=== PATIENT | female | born 1965 | race Caucasian/White ===

== ENCOUNTER 2017-06-14 13:37 | Day surgery (SDC) | payer OTHER ==
[2017-06-14] MEDS ORDERED: MIDAZOLAM 1 MG/ML 2 ML INJ (15:34)
[2017-06-14] MEDS ORDERED: PROPOFOL 20 ML (15:34)
[2017-06-14] MEDS ORDERED: METOCLOPRAMIDE 10 MG INJ (15:35)
[2017-06-14] MEDS ORDERED: CEFAZOLIN 1 GM INJ (15:37)
[2017-06-14] MEDS ORDERED: FENTAnyl 50 MCG/ML VIAL (15:41)
[2017-06-14] MEDS ORDERED: HYDROmorphONE (0.2 MG/ML) 10ML SYG IV ×2 (16:00)
[2017-06-14] MEDS ORDERED: LABETALOL HCL 20MG INJ IV (16:00)
[2017-06-14] MEDS ORDERED: morphine (1 MG/ML) 10ML SYRINGE IV ×2 (16:00)
[2017-06-14] MEDS ORDERED: hydrALAzine 20 MG INJ IV (16:00)
[2017-06-14] MEDS: BUPIVACAINE 0.5% (SDV) 30 ML INJ (16:05)
[2017-06-14] MEDS: LIDOCAINE 2% (MDV) 20 ML INJ (16:05)
[2017-06-14] MEDS: HYDROmorphONE (0.2 MG/ML) 10ML SYG IV (16:57)
[2017-06-14] MEDS: ONDANSETRON 4 MG INJ IV (16:58)
== END 2017-06-14 18:30 | disposition home or self-care (01) ==
LOC: SDS 13:37
DX: M89.9 Disorder of bone, unspecified (principal); M79.671 Pain in right foot; E66.9 Obesity, unspecified; Z68.30 Body mass index [BMI] 30.0-30.9, adult
CPT/HCPCS: 20240; 84703; 87070; 88304; 88311

== ENCOUNTER 2018-03-09 15:46 | Day surgery (SDC) | payer OTHER ==
[~2018-03-09 15:46] MED LIST: CEFAZOLIN 2 GM/50 ML (PMX) 50 ML IVPB; LACTATED RINGER'S 1,000 ML IV*
[2018-03-09] MEDS ORDERED: CEFAZOLIN 2 GM/50 ML (PMX) 50 ML IVPB (16:00)
[2018-03-09] MEDS ORDERED: LACTATED RINGER'S 1,000 ML IV* (16:00)
[2018-03-09] MEDS ORDERED: FENTAnyl 50 MCG/ML VIAL (18:38)
[2018-03-09] MEDS ORDERED: MIDAZOLAM 1 MG/ML 2 ML INJ (18:38)
[2018-03-09] MEDS ORDERED: PROPOFOL 20 ML (18:40)
[2018-03-09] MEDS ORDERED: LIDOCAINE 2% (SDV) 5 ML INJ (18:40)
[2018-03-09] MEDS ORDERED: FENTAnyl 50 MCG/ML VIAL IV ×2 (19:00)
[2018-03-09] MEDS ORDERED: DIPHENHYDRAMINE 50 MG INJ IV (19:00)
[2018-03-09] MEDS: BUPIVACAINE 0.5% (SDV) 30 ML INJ (19:41)
[2018-03-09] MEDS: HYDROmorphONE 1 MG/5 ML IV SYRINGE IV ×3 (19:48→20:01)
[2018-03-09] MEDS: ONDANSETRON 4 MG INJ IV (19:49)
[2018-03-09] MEDS: MEPERIDINE 25 MG INJ IV (20:04)
[2018-03-09] MEDS ORDERED: hydrALAzine 20 MG INJ (20:13)
[2018-03-09] MEDS: hydrALAzine 20 MG INJ IV (20:19)
[2018-03-09] MEDS: KETOROLAC 30 MG INJ IV (20:24)
== END 2018-03-09 21:01 | disposition home or self-care (01) ==
LOC: SDS 15:46
DX: G56.01 Carpal tunnel syndrome, right upper limb (principal)
CPT/HCPCS: 64721

== ENCOUNTER 2018-03-17 12:06 | Day surgery (SDC) | payer OTHER ==
[~2018-03-17 12:06] MED LIST changes: -LACTATED RINGER'S 1,000 ML IV*
[2018-03-17] MEDS ORDERED: BUPIVACAINE 0.5% (SDV) 30 ML INJ (14:15)
[2018-03-17] MEDS ORDERED: CEFAZOLIN 1 GM INJ (14:28)
[2018-03-17] MEDS ORDERED: MIDAZOLAM 1 MG/ML 2 ML INJ (14:28)
[2018-03-17] MEDS ORDERED: PROPOFOL 20 ML (14:28)
[2018-03-17] MEDS ORDERED: FENTAnyl 50 MCG/ML VIAL (14:28)
[2018-03-17] MEDS ORDERED: LIDOCAINE 1% (MDV) 20 ML INJ (14:31)
[2018-03-17] MEDS: LIDOCAINE 1% (MDV) 20 ML INJ INJ (14:39)
[2018-03-17] MEDS ORDERED: DEXAMETHASONE 4 MG/ML 1 ML INJ (14:46)
[2018-03-17] MEDS ORDERED: KETOROLAC 30 MG INJ (14:46)
[2018-03-17] MEDS ORDERED: METOCLOPRAMIDE 10 MG INJ (14:46)
[2018-03-17] MEDS ORDERED: ONDANSETRON 4 MG INJ (14:46)
[2018-03-17] MEDS ORDERED: OXYCODONE/ACETAMINOPHEN (5/325) TAB PO (15:00)
[2018-03-17] MEDS ORDERED: morphine (1 MG/ML) 10ML SYRINGE IV ×2 (15:00)
[2018-03-17] MEDS ORDERED: METOCLOPRAMIDE 10 MG INJ IV (15:00)
[2018-03-17] MEDS ORDERED: FENTAnyl 50 MCG/ML VIAL IV ×2 (15:00)
[2018-03-17] MEDS ORDERED: ONDANSETRON 4 MG INJ IV (15:00)
[2018-03-17] MEDS ORDERED: HYDROmorphONE 1 MG/5 ML IV SYRINGE IV ×2 (15:00)
[2018-03-17] MEDS ORDERED: EPHEDrine SULFATE 50 MG/5 ML SYG IV (15:00)
== END 2018-03-17 16:15 | disposition home or self-care (01) ==
LOC: SDS 12:06
DX: G56.02 Carpal tunnel syndrome, left upper limb (principal)
CPT/HCPCS: 64721; 84703